=== PATIENT | female | born 1955 | race Caucasian/White ===

== ENCOUNTER → 2020-02-29 13:10 | Outpatient (CLI) | payer MEDICARE, BC, SELFPAY ==
--- NOTE | 2020-02-29 13:16 | MM_ITS ---
PROCEDURE: MM DIG MAMM BI DX W/CAD Digital Breast Tomosynthesis Included CLINICAL INDICATION: BREAST PAIN patient currently is on antibiotics and the pain is better. There is no personal or family history of breast cancer. There has been a previous biopsy right breast for benign disease. COMPARISON: MG DMSB DIGITAL MAMM-SCREEN BILATERAL from 08/22/2010 MG DMSB DIGITAL MAMM-SCREEN BILATERAL from 12/25/2011 MG DMSB DIG MAMM-SCREEN RUBIO from 04/23/2013 TECHNIQUE: Standard CC and MLO images and 3D Tomosynthesis was obtained. R2 CAD reviewed. FINDINGS: Mild scattered fibroglandular densities are seen throughout both breasts. There are few benign-appearing micro and macrocalcifications in each breast there are stable benign-appearing nodular densities deep within the right breast. There is no suspicious lesion in either breast and no suspicious microcalcifications. IMPRESSION: Fibrofatty parenchyma with no suspicious lesions seen BI-RAD Category: 2 Benign Finding(s) FOLLOW-UP: 1YR 1 Year Follow-up (A letter has been sent to the patient regarding results of the study.) Dictated by: Dr. Jh Munoz MD 03/04/2020 08:51 Dr. Jh Munoz MD in [place] 03/04/2020 08:51
--- NOTE | 2020-02-29 13:16 | XR_ITS ---
PROCEDURE: XR DEXA AXIAL SKELETON CLINICAL HISTORY: POST-MENOPAUSAL COMPARISON: No exams were available for comparison FINDINGS: The right hip BMD is 0.679 with a T-score of -1.5. The left hip BMD is 0.728 with a T-score of -1.8. The lumbar spine BMD is 0.764 with a T-score of -2.6. IMPRESSION: This patient is considered osteoporotic according to the World Health Organization criteria. Fracture risk is high. Treatment is advised. Based on these results a follow-up exam is recommended in 2 year. Dictated by: Jeb Harrison MD 03/01/2020 01:56 Jeb Harrison MD in [place] 03/01/2020 06:47
--- NOTE | 2020-02-29 13:16 | CT_ITS ---
PROCEDURE: CT LUNG SCREENING CLINICAL INDICATION: NICOTINE DEPENDENCE Current smoker COMPARISON: No exams were available for comparison TECHNIQUE: The exam was performed on a GE Light Speed [address] scanner using 2.90 mGy CTDI. A low dose helical CT CHEST was performed on a multi-detector scanner. All CT scans at the facility use one or more dose reduction, viz: automated exposure control, ma/kV adjustment per patient size (including targeted exams where dose is matched to indication, i.e. head), or iterative reconstruction technique. The LDCT was performed in a facility that meets the criteria for the screening program. Data regarding this exam was submitted to ACR which is an approved registry. The order for this exam indicates that it came as a result of a lung cancer screening counseling shard decision-making visit that included all the elements required of such a visit including smoking cessation. The radiologist interpreting this exam meets the CMS criteria for the LDCT lung cancer screening program. The exam is reported using the Lung-RADS classification scale and reported to the ACR registry. NOTE: This study was performed for the specific purposes of lung cancer screening and is not an alternative to diagnostic chest CT. RADIATION DOSE: CTDI vol(CT dose Index-volume) = 2.90mG DLP (Dose Length Product) = 102.90 mGcm FINDINGS: There is COPD changes with centrilobular emphysema and bronchial thickening. There is a 2 x 1.4 by 1.4 cm spiculated mass in the right perihilar region of the right upper lobe inferiorly suspicious for neoplasm. This may be amenable to bronchoscopic directed biopsy. Pulmonology consult suggested. In addition, there is a 4 mm noncalcified nodule in the right middle lobe. Calcified granuloma is present in the right lower lobe. OTHER FINDINGS: No obvious mediastinal or hilar adenopathy. There is a 10 mm hypodensity in the left hepatic lobe anteriorly segment 4A. 1.6 cm nodularity noted in the superior mediastinum contiguous with the thyroid gland and may be related to sub sternal goiter. Chest CT without and with contrast suggested for further evaluation. IMPRESSION: Lung-RADS Category 4B Very Suspicious Follow-up: Pulmonology consult. Chest CT without and with contrast may also provide further evaluation. If biopsy not amenable to bronchoscopy the end PET CT may be needed for further evaluation.. Possible liver lobe lesion. Please see above for detail Dictated by: Jeb Harrison MD 03/04/2020 15:12 Jeb Harrison MD in [place] 03/04/2020 15:12
== END ==
PROVIDERS: PCP Family Medicine; Visit Provider Family Medicine
DX: N64.4 Mastodynia (principal); Z78.0 Asymptomatic menopausal state; Z87.891 Personal history of nicotine dependence; Z12.2 Encounter for screening for malignant neoplasm of respiratory organs
CPT/HCPCS: 71271; 77062; 77066; 77080; G0279

== ENCOUNTER → 2021-12-11 13:33 | Outpatient (CLI) | payer MEDICARE, BC, SELFPAY ==
--- NOTE | 2021-12-11 13:45 | MM_ITS ---
PROCEDURE INFORMATION: Exam: MG Bilateral Screening 3D Mammography Exam date and time: 12/11/2021 1:46 PM Age: 66 years old Clinical indication: Screening examination. Personal history of lung cancer. No family history of breast cancer. TECHNIQUE: Imaging protocol: Bilateral Screening tomosynthesis and 2D mammography including computer-aided detection (CAD) when performed. COMPARISON: 1. MG MM DIG MAMM BI DX W/CAD 02/29/2020 1:19 PM 2. MG DMSB DIG MAMM-SCREEN RUBIO 04/23/2013 4:26 PM 3. MG DMSB DIGITAL MAMM-SCREEN BILATERAL 12/25/2011 8:50 AM 4. MG DMSB DIGITAL MAMM-SCREEN BILATERAL 08/22/2010 9:56 AM FINDINGS: MAMMOGRAPHY: Breast composition: There are scattered areas of fibroglandular density. Mass: No suspicious mass. Architectural distortion: None. Calcifications: No suspicious calcifications. Asymmetric density: None. Skin thickening: None. Axillary adenopathy: None. Other findings: Port-A-Cath high in the left axilla, limits evaluation, and accentuates the importance of clinical breast exam. IMPRESSION: No mammographic evidence of malignancy. Annual screening is recommended unless otherwise clinically indicated. ASSESSMENT: BI-RADS Category 1: Negative
== END ==
PROVIDERS: PCP Family Medicine; Visit Provider Family Medicine
DX: Z12.31 Encounter for screening mammogram for malignant neoplasm of breast (principal)
CPT/HCPCS: 77063; 77067

== ENCOUNTER 2023-03-24 09:17 | Outpatient (CLI) | payer MEDICARE, BC, SELFPAY ==
--- NOTE | 2023-03-24 09:23 | XR_ITS ---
FINAL REPORT CLINICAL HISTORY: POST MENOPAUSAL Osteoporosis screening COMPARISON: 02/29/2020 FINDINGS: Using L1-4, the bone mineral density of the spine is 0.813 g/cm2, corresponding to T-score of -2.1 which is consistent with osteopenia. Previously 0.764 g/cm? with T-score of -2.6. Using the left hip, the bone mineral density of the femoral neck is 0.688 g/cm2, corresponding to a T-score of -2.1 which is consistent with osteopenia. Previously was 0.728 g/cm? with T-score of -1.8. Using the right hip, the bone mineral density of the femoral neck is 0.669 g/cm2, corresponding to a T-score of -1.6 which is consistent with osteopenia. Previously was 0.679 g/cm? with T-score of -1.5. FRAX 10 year fracture risk is 3.8% for a hip fracture and 24% for a major osteoporotic fracture. NOTE: T-score: Standard deviation compared with peak bone mass of young adult mean. *Following the recommendations of the International Society of Bone densitometry, classification of hip BMD is based on the lower of two T-scores; total hip or femoral neck. IMPRESSION: Diminished bone mineral density consistent with osteopenia. Reviewed, Interpreted and Dictated by Riley Khan MD Transcribed by Bijal Avitia Authenticated and . [facility]
--- NOTE | 2023-03-24 09:24 | MM_ITS ---
PROCEDURE INFORMATION: Exam: MG Bilateral Screening 3D Mammography Exam date and time: 03/24/2023 9:18 AM Age: 68 years old Clinical indication: Screening mammogram TECHNIQUE: Imaging protocol: Bilateral Screening tomosynthesis and 2D mammography including computer-aided detection (CAD) when performed. COMPARISON: 1. MG MM DIG SCREENING MAMM BI W/CAD 12/11/2021 1:46 PM 2. MG MM DIG MAMM BI DX W/CAD 02/29/2020 1:19 PM 3. MG DMSB DIG MAMM-SCREEN RUBIO 04/23/2013 4:26 PM 4. MG DMSB DIGITAL MAMM-SCREEN BILATERAL 12/25/2011 8:50 AM FINDINGS: MAMMOGRAPHY: Breast composition: There are scattered areas of fibroglandular density. Mass: None. Architectural distortion: No new or suspicious architectural distortion. Calcifications: Stable benign-appearing calcifications are present. No new or suspicious cluster of microcalcifications have developed. Asymmetric density: No new or suspicious asymmetric density is present Skin thickening: None. Axillary adenopathy: None. IMPRESSION: No mammographic evidence of malignancy. Recommend annual screening mammography unless otherwise clinically indicated. ASSESSMENT: BI-RADS category 2: Benign
== END 2023-03-24 23:59 ==
LOC: RAD 09:17
PROVIDERS: PCP Family Medicine; Visit Provider Family Medicine
DX: Z78.0 Asymptomatic menopausal state (principal); Z13.820 Encounter for screening for osteoporosis; Z12.31 Encounter for screening mammogram for malignant neoplasm of breast
CPT/HCPCS: 77063; 77067; 77080

== ENCOUNTER 2024-05-11 15:07 | Outpatient (CLI) | payer MEDICARE, SELFPAY ==
--- NOTE | 2024-05-11 15:12 | MM_ITS ---
PROCEDURE INFORMATION: Exam: MG Bilateral Screening 3D Mammography Exam date and time: 05/11/2024 3:14 PM Age: 69 years old Clinical indication: Screening examination TECHNIQUE: Imaging protocol: Bilateral Screening tomosynthesis and 2D mammography including computer-aided detection (CAD) when performed. COMPARISON: 1. MG MM DIG SCREENING MAMM BI W/CAD 03/24/2023 9:18 AM 2. MG MM DIG SCREENING MAMM BI W/CAD 12/11/2021 1:46 PM FINDINGS: MAMMOGRAPHY: Breast composition: There are scattered areas of fibroglandular density. Mass: No suspicious masses. Architectural distortion: None. Calcifications: No suspicious calcifications. Asymmetric density: None. Skin thickening: None. Axillary adenopathy: None. IMPRESSION: No mammographic evidence of malignancy. Annual screening is recommended unless otherwise clinically indicated. ASSESSMENT: BI-RADS Category 1: Negative.
== END 2024-05-11 23:59 | disposition home or self-care (01) ==
LOC: RAD 15:08
PROVIDERS: PCP Family Medicine; Visit Provider Student in an Organized Health Care Education/Training Program
DX: Z12.31 Encounter for screening mammogram for malignant neoplasm of breast (principal)
CPT/HCPCS: 77063; 77067